=== PATIENT | male | born 1995 | race Caucasian/White ===

== ENCOUNTER 2018-10-29 18:42 | Emergency (ER) | payer MEDICAID ==
[2018-10-29] MEDS ORDERED: TORAdol 30 mg Injection IM ONE (19:26)
[2018-10-29] MEDS ORDERED: TORAdol 30 mg Injection ONE (19:29)
[2018-10-29 19:36] VITALS: O2SAT 98
--- NOTE | 2018-10-29 21:06 | ERPHSYRPT ---
- History of Present Illness Source: patient Exam Limitations: no limitations Patient Subjective Stated Complaint: FELL EIGHT FEET OFF A ROOF AT 1430 TODAY. INJURED RIGHT FOOT. DENIES ANY OTHER INJURY Triage Nursing Assessment: TO ROOM PER W/C. SKIN W/D, COLOR NORMAL, RESP EASY. RIGHT FOOT SWOLLEN AND DISCOLORED. GOOD PEDAL PULSE AND FOOT WARM. Physician History: Pt is a 23 y/o male that presented to the ED with R foot injury. Pt stated that was on the roof of his home today at noon, and he slipped and fell off, falling on his r foot. The pain slowly got worse, and eventualy he had to come to the ED. Pt states, he has R foot edema, and severe pain, mostly lateraly. Method of Injury: fell Occurred: this afternoon Quality: constant, stabbing, throbbing Lower Extremities Pain: 2nd toe: right, 3rd toe: right, 4th toe: right, 5th toe : right Modifying Factors: Improves With: cold therapy, pain medication Associated Symptoms: unable to bear weight Allergies/Adverse Reactions: aloe vera Allergy (Mild, Verified 10/29/18 19:04) Hives/BLISTERS Home Medications: No Reportable Medications [No Reported Medications] 10/29/18 [History] Hx Tetanus, Diphtheria Vaccination/Date Given: No Hx Influenza Vaccination/Date Given: No Hx Pneumococcal Vaccination/Date Given: No - Review of Systems Constitutional: No Fever, No Chills Respiratory: No Cough, No Dyspnea Cardiac: No Chest Pain, No Edema, No Syncope Abdominal/Gastrointestinal: No Abdominal Pain, No Nausea, No Vomiting, No Diarrhea Musculoskeletal: Fall, Injury, Other (pain in the R foot, with edema) Skin: No Rash Neurological: No Dizziness, No Focal Weakness, No Sensory Changes - Past Medical History Pertinent Past Medical History: Yes Respiratory History: Asthma Psycho-Social History: Depression Other Medical History: acne. depression - Past Surgical History Past Surgical History: No - Social History Smoking Status: Current every day smoker How long have you smoked: 10 Exposure to second hand smoke: Yes Drug Use: none Patient Lives Alone: No - Nursing Vital Signs Nursing Vital Signs: Initial Vital Signs Temperature 98.6 F 10/29/18 18:48 Pulse Rate 83 10/29/18 18:48 Respiratory Rate 16 10/29/18 18:48 Blood Pressure 126/78 10/29/18 18:48 O2 Sat by Pulse Oximetry 100 10/29/18 18:48 Pain Scale Pain Intensity 8 - Physical Exam General Appearance: alert Cardiovascular/Respiratory Exam: chest non-tender, normal breath sounds, regular rate/rhythm, no respiratory distress Gastrointestinal/Abdominal Exam: non-tender, guarding Back Exam: normal inspection, No vertebral tenderness Hips Exam: bilateral: non-tender, normal inspection, normal range of motion, no evidence of injury Legs Exam: bilateral leg: non-tender, normal inspection, normal range of motion , no evidence of injury Knees Exam: bilateral knee: non-tender, normal inspection, normal range of motion, no evidence of injury Ankle Exam: bilateral ankle: non-tender, normal inspection, normal range of motion, no evidence of injury Foot Exam: right foot: bone tenderness, deformity, ecchymosis, limited range of motion, pain, soft tissue tenderness, swelling, left foot: non-tender, normal inspection, normal range of motion, no evidence of injury Neuro/Tendon Exam: normal sensation, normal motor functions SpO2: 98 - Course Nursing assessment & vital signs reviewed: Yes - Radiology Exams Right Foot X-ray Interpretation: Reviewed by me, Teleradiologist Report (2-5 fracture of the head of metatarsals on the R) Ordered Tests: Active Orders 24 hr Category Date Time Status FOOT (MINIMUM 3 VIEWS) Stat Exams 10/29/18 19:48 Taken Medication Summary Discontinued Medications Generic Name Dose Route Start Last Admin Trade Name Freq PRN Reason Stop Dose Admin Ketorolac Tromethamine 60 mg 10/29/18 19:26 10/29/18 19:32 Toradol 30 Mg Injection IM 10/29/18 19:27 60 mg STAT ONE Administration Ketorolac Tromethamine Confirm 10/29/18 19:29 Toradol 30 Mg Injection Administered 10/29/18 19:30 Dose 60 mg .ROUTE .STK-MED ONE - Progress Progress: unchanged Progress Note: Pt had XR done, that showed fracture and some displacement of the head of metatarsal heads 2-5 on R foot. Pt got Toradol for the pain. I discussed the case with Dr Lau for ortho in [facility] that accepted the pt and Dr Hui in the ED in [facility] will take the pt and consult ortho. Pt was notified about results and plan. 10/29/18 21:07 Will see patient in: other (Transfer to [facility]) - Departure Time of Disposition: 21:09 Departure Disposition: Transfer Clinical Impression: Foot fracture, right Condition: Stable Critical Care Time: No Referrals: DOCTOR,NO FAMILY [Primary Care Provider] -
[2018-10-29 22:25] VITALS: BP 114/63; PULSE 65
--- NOTE | 2018-10-30 08:48 | XRAY ---
Indication: Pain following fall from roof. Comparison: None 3 nonweightbearing views of the right foot demonstrates minimally displaced comminuted acute fractures involving the heads of the 3/4/5 metatarsals and nondisplaced acute fracture head of the 2 metatarsal with soft tissue swelling. No other bony, articular, or soft tissue abnormalities.
== END 2018-10-29 22:22 | disposition short-term general hospital (02) ==
LOC: ED 18:42
DX: S92.901A Unspecified fracture of right foot, initial encounter for closed fracture (principal); W17.89XA Other fall from one level to another, initial encounter
CPT/HCPCS: 73630; 96372; 99284; J1885

== ENCOUNTER 2022-05-20 18:20 | Emergency (ER) | payer MEDICAID, OTHER ==
[2022-05-20 18:38] VITALS: O2SAT 97
--- NOTE | 2022-05-20 18:45 | ERPHSYRPT ---
- History of Present Illness Historian: patient, family Exam Limitations: no limitations Patient Subjective Stated Complaint: Pt states "I think I have kidney stones and had a fever." Triage Nursing Assessment: PT presented alert and oriented X 3, skin wpd. pt ambualtes with an upright steady gait, able to speak in clear full sentences pt in no apparent respiratory distress. Pt resting comfortably on the bed. Timing/Duration: today Activities at Onset: none Quality: cramping, stabbing Abdominal Pain Onset Location: RLQ, LLQ, flank (Right) Pain Radiation: no radiation Severity of Pain-Max: severe Severity of Pain-Current: mild Modifying Factors: Improves With: urinating Previous symptoms: no prior history Hx Tetanus, Diphtheria Vaccination/Date Given: No Hx Influenza Vaccination/Date Given: No Hx Pneumococcal Vaccination/Date Given: No Immunizations Up to Date: Yes <MOHINDER MANUEL - Last Filed: 05/20/22 18:52> <KAYCEE HINES - Last Filed: 05/20/22 20:12> - History of Present Illness Time Seen by Provider: 05/20/22 18:35 Physician History: Patient is a 26-year-old male who presents with right flank pain and left lower quadrant pain this started today. He had temperature to 103 at home he also complains of pain with urination and difficulty urinating. He has no history of any abdominal surgeries. (MOHINDER MANUEL) Allergies/Adverse Reactions: aloe vera Allergy (Mild, Verified 10/29/18 19:04) Hives/BLISTERS Travel Risk - International Travel Have you traveled outside of the country in past 3 weeks: No - Coronavirus Screening Are you exhibiting any of the following symptoms?: No Close contact with a COVID-19 positive Pt in past 14-21 Days: No - Vaccine Status Have you recieved a Covid-19 vaccination: No <MOHINDER MANUEL - Last Filed: 05/20/22 18:52> - Review of Systems Constitutional: No Fever, No Chills Eyes: No Symptoms Ears, Nose, & Throat: No Symptoms Respiratory: No Cough, No Dyspnea Cardiac: No Chest Pain, No Edema, No Syncope Abdominal/Gastrointestinal: No Abdominal Pain, No Nausea, No Vomiting, No Diarrhea Genitourinary Symptoms: Dysuria, Flank Pain Musculoskeletal: No Back Pain, No Neck Pain Skin: No Rash Neurological: No Dizziness, No Focal Weakness, No Sensory Changes Psychological: No Symptoms Endocrine: No Symptoms All Other Systems: Reviewed and Negative <MOHINDER MANUEL Last Filed: 05/20/22 18:52> - Past Medical History Pertinent Past Medical History: Yes Respiratory History: Asthma Psycho-Social History: Depression Other Medical History: acne. depression - Past Surgical History Past Surgical History: No - Social History Smoking Status: Current every day smoker How long have you smoked: 10 Exposure to second hand smoke: Yes Drug Use: none Patient Lives Alone: No <MOHINDER MANUEL Last Filed: 05/20/22 18:52> - Physical Exam General Appearance: mild distress, alert Eye Exam: PERRL/EOMI, eyes nml inspection Ears, Nose, Throat Exam: normal ENT inspection, pharynx normal, moist mucous membranes Neck Exam: normal inspection, non-tender, supple, full range of motion Respiratory Exam: normal breath sounds, lungs clear, No respiratory distress Cardiovascular Exam: regular rate/rhythm, normal heart sounds Gastrointestinal/Abdomen Exam: soft, normal bowel sounds, tenderness, No mass, No guarding, No rebound Back Exam: normal inspection, normal range of motion, No CVA tenderness, No vertebral tenderness Extremity Exam: normal inspection, normal range of motion, pelvis stable Neurologic Exam: alert, oriented x 3, cooperative, normal mood/affect, nml cerebellar function, sensation nml, No motor deficits Skin Exam: normal color, warm, dry SpO2 Interpretation: normal SpO2: 97 O2 Delivery: Room Air <MOHINDER MANUEL Filed: 05/20/22 18:52> - Nursing Vital Signs Nursing Vital Signs: Initial Vital Signs Temperature 100.7 F 05/20/22 18:32 Pulse Rate 125 H 05/20/22 18:32 Respiratory Rate 20 05/20/22 18:32 Blood Pressure 111/73 05/20/22 18:32 O2 Sat by Pulse Oximetry 97 05/20/22 18:32 Pain Scale Pain Intensity 5 - Course Nursing assessment & vital signs reviewed: Yes <MOHINDER MANUEL Filed: 05/20/22 18:52> Ordered Tests: Active Orders 24 hr Category Date Time Status IV Insertion STAT Care 05/20/22 19:09 Active ABDOMEN AND PELVIS W/0 CONTRAS [CT] Stat Exams 05/20/22 18:39 Taken AMYLASE Stat Lab 05/20/22 19:05 Completed BLOOD CULTURE Stat Lab 05/20/22 19:20 Received CBC W DIFF Stat Lab 05/20/22 19:05 Completed CMP Stat Lab 05/20/22 19:05 Completed CULTURE,URINE Stat Lab 05/20/22 19:10 Received LIPASE Stat Lab 05/20/22 19:05 Completed Lactic Acid Stat Lab 05/20/22 19:05 Completed UA W/RFX CULTURE Stat Lab 05/20/22 19:10 Completed Medication Summary Discontinued Medications Generic Name Dose Route Start Last Admin Trade Name Werner PRN Reason Stop Dose Admin Acetaminophen 650 mg 05/20/22 19:09 05/20/22 19:24 Acetaminophen 325 Mg Tablet PO 05/20/22 19:10 650 mg STAT ONE Administration Acetaminophen Confirm 05/20/22 19:21 Acetaminophen 325 Mg Tablet Administered 05/20/22 19:22 Dose 650 mg .ROUTE .STK-MED ONE Sodium Chloride 1,000 mls @ 999 mls/hr 05/20/22 19:09 05/20/22 19:24 Sodium Chloride 0.9% 1000 Ml IV 05/20/22 20:09 999 mls/hr .Q1H1M STA Administration Sodium Chloride Confirm 05/20/22 19:21 Sodium Chloride 0.9% 1000 Ml Administered 05/20/22 19:22 Dose 1,000 mls @ ud .ROUTE .STK-MED ONE Ceftriaxone Sodium/Dextrose 1 g in 50 mls @ 100 mls/hr 05/20/22 19:31 05/20/22 19:45 Rocephin 1 Gm-D5w 50 Ml Bag IV 05/20/22 20:00 100 mls/hr STAT STA 100 mls/hr Administration Ceftriaxone Sodium/Dextrose Confirm 05/20/22 19:43 Rocephin 1 Gm-D5w 50 Ml Bag Administered 05/20/22 19:44 Dose 1 g in 50 mls @ ud IV .STK-MED ONE Levofloxacin 500 mg 05/20/22 19:31 05/20/22 19:45 Levofloxacin 500 Mg Tablet PO 05/20/22 19:32 500 mg STAT ONE Administration Levofloxacin Confirm 05/20/22 19:43 Levofloxacin 500 Mg Tablet Administered 05/20/22 19:44 Dose 500 mg .ROUTE .STK-MED ONE Ondansetron HCl 4 mg 05/20/22 19:09 05/20/22 19:25 Ondansetron Hcl 4 Mg/2 Ml Vial IV 05/20/22 19:10 4 mg STAT ONE Administration Ondansetron HCl Confirm 05/20/22 19:20 Ondansetron Hcl 4 Mg/2 Ml Vial Administered 05/20/22 19:21 Dose 4 mg .ROUTE .STK-MED ONE Phenazopyridine HCl 200 mg 05/20/22 19:14 05/20/22 19:24 Phenazopyridine Hcl 200 Mg Tablet PO 05/20/22 19:15 200 mg STAT ONE Administration Phenazopyridine HCl Confirm 05/20/22 19:20 Phenazopyridine Hcl 200 Mg Tablet Administered 05/20/22 19:21 Dose 200 mg .ROUTE .Bleachers-MED ONE Lab/Rad Data: Laboratory Result Diagrams 05/20/22 19:05 05/20/22 19:05 Laboratory Results 05/20/22 05/20/22 05/20/22 Range/Units 19:10 19:05 19:05 WBC (4.0-10.5) x10^3/uL RBC (4.1-5.6) x10^6/uL Hgb (12.5-18.0) g/dL Hct (42-50) % MCV (78-100) fL MCH (26-32) pg MCHC (32-36) g/dL RDW (11.5-14.0) % Plt Count (150-450) x10^3/uL MPV (7.5-11.0) fL Gran % (36.0-66.0) % Immature Gran % (Auto) (0.00-0.4) % Nucleat RBC Rel Count (0.00-0.1) % Eos # (Auto) (0-0.5) x10^3/uL Immature Gran # (Auto) (0.00-0.03) x10^3u/L Absolute Lymphs (auto) (1.0-4.6) x10^3/uL Absolute Monos (auto) (0.0-1.3) x10^3/uL Absolute Nucleated RBC (0.00-0.01) x10^3u/L Lymphocytes % (24.0-44.0) % Monocytes % (0.0-12.0) % Eosinophils % (0.00-5.0) % Basophils % (0.0-0.4) % Absolute Granulocytes (1.4-6.9) x10^3/uL Basophils # (0-0.4) x10^3/uL Sodium 136 L (137-145) mmol/L Potassium 3.9 (3.5-5.1) mmol/L Chloride 102 (98-107) mmol/L Carbon Dioxide 27 (22-30) mmol/L Anion Gap 10.5 (5-15) MEQ/L BUN 8 L (9-20) mg/dL Creatinine 1.00 (0.66-1.25) mg/dL Estimated GFR > 60.0 ML/MIN Glucose 98 (74-106) mg/dL Lactic Acid 0.7 (0.4-2.0) Calcium 8.8 (8.4-10.2) mg/dL Total Bilirubin 0.70 (0.2-1.3) mg/dL AST 22 (17-59) U/L ALT 18 (0-50) U/L Alkaline Phosphatase 72 (38-126) U/L Serum Total Protein 7.5 (6.3-8.2) g/dL Albumin 4.2 (3.5-5.0) g/dL Amylase 60 (30-110) U/L Lipase 31 (23-300) U/L Urinalys Dipstick Clnc MAIN LAB Urine Color YELLOW (YELLOW) Urine Appearance CLOUDY (CLEAR) Urine pH 6.0 (5-6) Ur Specific [place] >=1.030 (1.005-1.025) POC Urine Protein Conf >=300 (Negative) Urine Ketones MODERATE-40 (NEGATIVE) Urine Nitrite NEGATIVE (NEGATIVE) Urine Bilirubin NEGATIVE (NEGATIVE) Urine Urobilinogen 0.2 (0-1) mg/dL Urine Leukocytes LARGE (NEGATIVE) Urine WBC (Auto) >100 (0-5) /HPF Urine RBC (Auto) >101 (0-2) /HPF U Epithel Cells (Auto) NONE (FEW) /HPF Urine Bacteria (Auto) MODERATE (NEGATIVE) /HPF Urine RBC LARGE (0-5) Freddy/ul Urine Mucus (Auto) MANY (NEGATIVE) /HPF Ur Culture Indicated? YES Urine Glucose NEGATIVE (NEGATIVE) mg/dL 05/20/22 Range/Units 19:05 WBC 18.0 H (4.0-10.5) x10^3/uL RBC 4.29 (4.1-5.6) x10^6/uL Hgb 12.7 (12.5-18.0) g/dL Hct 38.1 L (42-50) % MCV 88.8 (78-100) fL MCH 29.6 (26-32) pg MCHC 33.3 (32-36) g/dL RDW 14.0 (11.5-14.0) % Plt Count 192 (150-450) x10^3/uL MPV 11.1 H (7.5-11.0) fL Gran % 81.1 H (36.0-66.0) % Immature Gran % (Auto) 0.5 H (0.00-0.4) % Nucleat RBC Rel Count 0.0 (0.00-0.1) % Eos # (Auto) 0.07 (0-0.5) x10^3/uL Immature Gran # (Auto) 0.09 H (0.00-0.03) x10^3u/L Absolute Lymphs (auto) 1.35 (1.0-4.6) x10^3/uL Absolute Monos (auto) 1.85 H (0.0-1.3) x10^3/uL Absolute Nucleated RBC 0.00 (0.00-0.01) x10^3u/L Lymphocytes % 7.5 L (24.0-44.0) % Monocytes % 10.3 (0.0-12.0) % Eosinophils % 0.4 (0.00-5.0) % Basophils % 0.2 (0.0-0.4) % Absolute Granulocytes 14.63 H (1.4-6.9) x10^3/uL Basophils # 0.03 (0-0.4) x10^3/uL Sodium (137-145) mmol/L Potassium (3.5-5.1) mmol/L Chloride (98-107) mmol/L Carbon Dioxide (22-30) mmol/L Anion Gap (5-15) MEQ/L BUN (9-20) mg/dL Creatinine (0.66-1.25) mg/dL Estimated GFR ML/MIN Glucose (74-106) mg/dL Lactic Acid (0.4-2.0) Calcium (8.4-10.2) mg/dL Total Bilirubin (0.2-1.3) mg/dL AST (17-59) U/L ALT (0-50) U/L Alkaline Phosphatase (38-126) U/L Serum Total Protein (6.3-8.2) g/dL Albumin (3.5-5.0) g/dL Amylase (30-110) U/L Lipase (23-300) U/L Urinalys Dipstick Clnc Urine Color (YELLOW) Urine Appearance (CLEAR) Urine pH (5-6) Ur Specific [place] (1.005-1.025) POC Urine Protein Conf (Negative) Urine Ketones (NEGATIVE) Urine Nitrite (NEGATIVE) Urine Bilirubin (NEGATIVE) Urine Urobilinogen (0-1) mg/dL Urine Leukocytes (NEGATIVE) Urine WBC (Auto) (0-5) /HPF Urine RBC (Auto) (0-2) /HPF U Epithel Cells (Auto) (FEW) /HPF Urine Bacteria (Auto) (NEGATIVE) /HPF Urine RBC (0-5) Freddy/ul Urine Mucus (Auto) (NEGATIVE) /HPF Ur Culture Indicated? Urine Glucose (NEGATIVE) mg/dL - Progress Progress: unchanged <MOHINDER MANUEL - Last Filed: 05/20/22 18:52> - Progress Progress: improved, re-examined Counseled pt/family regarding: lab results, diagnosis, need for follow-up, rad results <KAYCEE HINES - Last Filed: 05/20/22 20:12> - Progress Progress Note: 05/20/22 20:10 Patient voices no pain in the abdomen at this time. Patient also states that he is hungry and thirsty. We will allow him to drink first and then advance his diet slowly. CAT scan of the abdomen pelvis without contrast shows a normal appendix. There is mid urinary bladder wall thickening. This may be due to incomplete distention versus cystitis. No other acute intra-abdominal or intrapelvic findings. (KAYCEE HINES) - Departure Departure Disposition: Home Critical Care Time: No <MOHINDER MANUEL - Last Filed: 05/20/22 18:52> <KAYCEE HINES - Last Filed: 05/20/22 20:12> - Departure Clinical Impression: Abdominal pain, UTI (urinary tract infection), Cystitis, Dysuria, Fever Condition: Stable Referrals: DOCTOR,NO FAMILY [NON-STAFF PHY W/O PRIVILEGES] - Follow up/PCP as directed Additional Instructions: Drink plenty of fluids. Advance your diet once you have been tolerating liquids well. Alternate Tylenol and ibuprofen for pain and fever control. Take your antibiotics and other prescriptions as prescribed. Follow-up with your primary care physician for persistent symptoms. Prescriptions: Ciprofloxacin [Cipro 500 MG] 500 mg PO BID #14 tablet Phenazopyridine HCl 200 mg [Pyridium 200 mg] 200 mg PO TID #6 tablet
[2022-05-20] MEDS ORDERED: TYLENOL 325 MG PO ONE (19:09)
[2022-05-20] MEDS ORDERED: Zofran 4 MG/2 ML VIAL IV ONE (19:09)
[2022-05-20] MEDS ORDERED: Sodium Chloride 0.9% 1000 ML 1,000 ML IV STA (19:09)
[2022-05-20 19:11] LABS: Absolute Neutrophil Ct (ANC) 14.63 x10^3/uL (1.4-6.9); Basophil (Absolute #) 0.03 x10^3/uL (0-0.4); Eosinophil % 0.4 % (0.00-5.0); Eosinophil (Absolute #) 0.07 x10^3/uL (0-0.5); Hematocrit 38.1 % (42-50); Hemoglobin 12.7 g/dL (12.5-18.0); Lymphocyte (Absolute #) 1.35 x10^3/uL (1.0-4.6); Lymphocytes % 7.5 % (24.0-44.0); Mean Cell Volume 88.8 fL (78-100); Mean Corpuscular Hemoglobin 29.6 pg (26-32); Mean Corpuscular Hgb Concent. 33.3 g/dL (32-36); Mean Platelet Volume 11.1 fL (7.5-11.0); Monocyte (Absolute #) 1.85 x10^3/uL (0.0-1.3); Monocytes % 10.3 % (0.0-12.0); Neutrophil % 81.1 % (36.0-66.0); Platelet Count 192 x10^3/uL (150-450); Red Blood Count 4.29 x10^6/uL (4.1-5.6)
[2022-05-20] MEDS ORDERED: PYRIDIUM 200 MG PO ONE (19:14)
[2022-05-20] MEDS ORDERED: PYRIDIUM 200 MG ONE (19:20)
[2022-05-20] MEDS ORDERED: Zofran 4 MG/2 ML VIAL ONE (19:20)
[2022-05-20] MEDS ORDERED: Sodium Chloride 0.9% 1000 ML 1,000 ML ONE (19:21)
[2022-05-20] MEDS ORDERED: TYLENOL 325 MG ONE (19:21)
[2022-05-20 19:27] LABS: ALBUMIN 4.2 g/dL (3.5-5.0); ALKALINE PHOSPHATASE 72 U/L (38-126); AMYLASE 60 U/L (30-110); ANION GAP 10.5 MEQ/L (5-15); BLOOD UREA NITROGEN 8 mg/dL (9-20); CHLORIDE 102 mmol/L (98-107); Calcium 8.8 mg/dL (8.4-10.2); Carbon Dioxide 27 mmol/L (22-30); EST GLOMERULAR FILTRATION RATE > 60.0 ML/MIN; Glucose 98 mg/dL (74-106); LIPASE 31 U/L (23-300); Potassium 3.9 mmol/L (3.5-5.1); SGOT/AST 22 U/L (17-59); SGPT/ALT 18 U/L (0-50); SODIUM 136 mmol/L (137-145); Total Protein 7.5 g/dL (6.3-8.2)
[2022-05-20 19:27] LABS: Bacteria MODERATE /HPF (NEGATIVE); Mucus MANY /HPF (NEGATIVE); WBC >100 /HPF (0-5)
[2022-05-20 19:28] LABS: Appearance CLOUDY (CLEAR); Bilirubin NEGATIVE (NEGATIVE); Dipstick done @ ? MAIN LAB; Glucose NEGATIVE (NEGATIVE); Ketones MODERATE-40 (NEGATIVE); Nitrite NEGATIVE (NEGATIVE); Protein,Urine Dip >=300 (Negative); RBC LARGE Ery/ul (0-5); Specific Gravity >=1.030 (1.005-1.025); Urobilinogen 0.2 mg/dL (0-1)
[2022-05-20 19:29] LABS: RBC >101 /HPF (0-2); Urine Cultured Indicated? YES
[2022-05-20] MEDS ORDERED: Levofloxacin 500 MG Tablet PO ONE (19:31)
[2022-05-20] MEDS ORDERED: ROCEPHIN 1 Gm-D5w 50 ml Bag** 1 G/50 ML IVPB IV STA (19:31)
[2022-05-20] MEDS ORDERED: Levofloxacin 500 MG Tablet ONE (19:43)
[2022-05-20] MEDS ORDERED: ROCEPHIN 1 Gm-D5w 50 ml Bag** 1 G/50 ML IVPB IV ONE (19:43)
[2022-05-20 21:10] VITALS: BP 102/66; PULSE 107
[2022-05-20 22:55] LABS: Slide Review 1 YES
--- NOTE | 2022-05-21 08:32 | XRAY ---
Indication: Abdomen pain and hematuria. Multiple contiguous axial images obtained through the abdomen and pelvis without contrast. Comparison: None Lung bases clear. Heart not enlarged. Noncontrasted stomach and bowel loops appear nonobstructed with normal appendix. Urinary bladder minimal my distended with circumferential wall thickening either incomplete distention versus cystitis. No free fluid/air. Remaining liver, gallbladder, pancreas, spleen, adrenal glands, kidneys, ureters, and aorta are unremarkable for noncontrast exam. Osseous structures intact. Impression: 1. Urinary bladder circumferential wall thickening either incomplete distention versus cystitis. 2. Remaining CT abdomen/pelvis without contrast exam is negative.
== END 2022-05-20 21:24 | disposition home or self-care (01) ==
LOC: ED 18:20
DX: N30.90 Cystitis, unspecified without hematuria (principal); R10.31 Right lower quadrant pain; R30.0 Dysuria; R50.9 Fever, unspecified; R10.32 Left lower quadrant pain; Z72.0 Tobacco use; Z28.310 Unvaccinated for COVID-19
CPT/HCPCS: 36000; 36415; 74176; 80053; 81015; 82150; 83605; 83690; 85025; 87040; 87077; 87086; 87186; 96374; 99284; J0696; J2405; A9270-GY